=== PATIENT | female | born 1990 | race Two or more races ===

== ENCOUNTER 2022-08-27 15:55 | Observation (INO) | payer MEDICAID ==
[~2022-08-27 15:55] MED LIST: ALBU0.5N2 IN; PRE NATAL
[2022-08-27] MEDS ORDERED: PROB1CHW27 PO (18:17)
[2022-08-27] MEDS ORDERED: PREN-96 PO (18:17)
[2022-08-27] MEDS ORDERED: METR-344 PO (20:19)
== END 2022-08-27 19:40 | disposition home or self-care (01) ==
LOC: LDRP 15:55
PROVIDERS: ADMIT Obstetrics & Gynecology; ATTEND Obstetrics & Gynecology
DX: O26.892 Other specified pregnancy related conditions, second trimester (principal); R10.2 Pelvic and perineal pain; N89.8 Other specified noninflammatory disorders of vagina; Z3A.22 22 weeks gestation of pregnancy
CPT/HCPCS: 59025; 76815; 87210; 94760; G0378

== ENCOUNTER 2022-12-10 13:09 | Observation (INO) | payer MEDICAID ==
[~2022-12-10 13:09] MED LIST changes: +METR-344 PO; -PRE NATAL; +PREN-96 PO; +PROB1CHW27 PO
== END 2022-12-10 14:34 | disposition home or self-care (01) ==
LOC: UNDOADMOB 13:09 → LDRP 13:09 → UNDODISOB 14:34
PROVIDERS: ADMIT Obstetrics & Gynecology; ATTEND Obstetrics & Gynecology
DX: O62.9 Abnormality of forces of labor, unspecified (principal); O46.93 Antepartum hemorrhage, unspecified, third trimester; O26.893 Other specified pregnancy related conditions, third trimester; N89.8 Other specified noninflammatory disorders of vagina; Z3A.37 37 weeks gestation of pregnancy
CPT/HCPCS: 59025; 81002; 94760; G0378

== ENCOUNTER 2022-12-21 11:54 | Observation (INO) | payer MEDICAID ==
[~2022-12-21] VITALS: Ht 157.5 cm; Wt 88.9 kg
[2022-12-21] MEDS ORDERED: CEPH250C PO (13:46)
== END 2022-12-21 13:56 | disposition home or self-care (01) ==
LOC: UNDOADMOB 11:54 → LDRP 11:54
PROVIDERS: ADMIT Obstetrics & Gynecology; ATTEND Obstetrics & Gynecology
DX: O62.9 Abnormality of forces of labor, unspecified (principal); O26.893 Other specified pregnancy related conditions, third trimester; R10.30 Lower abdominal pain, unspecified; Z3A.39 39 weeks gestation of pregnancy
CPT/HCPCS: 59025; 81002; G0378